=== PATIENT | male | born 1950 | race Caucasian/White ===

== ENCOUNTER 2023-02-06 06:32 | Day surgery (SDC) | payer OTHER ==
[2023-02-06] VITALS (15 sets, daily range): BP systolic 95–153; BP diastolic 59–93
[~2023-02-06] VITALS: Ht 182 cm; Wt 128.3 kg
[~2023-02-06 06:32] MED LIST: AMLO10 PO; CELE100 PO; FURO20 PO; LOSA25 PO; NO ROUTINE MEDS; Percocet 5-3251 EACH PO
--- NOTE | 2023-02-06 07:43 | NUR ---
History, Chart, Medications and Allergies reviewed before start of procedure. Ambulatory in Day Surgery. Pre-Op teaching done. Pt verbalizes understanding. Patient confirms NPO status and agrees with scheduled surgery. Patient reports completing Chlorhexadine shower X2 prior to admission to hospital. Surgical site prepped with 2% Chlorhexidine cloth wipe. Lungs clear T/O to Auscultation. Patient States Post-Procedure ride home has been arranged.
--- NOTE | 2023-02-06 10:39 | NUR ---
PATIENT ARRIVED FROM PACU TODAY AT 1030. POD 0 RIGHT TOTAL KNEE PATIENT IS A&OX4. VS ARE WNL AND IS ON RA. PATIENT HAD A SPINAL DURING THE PROCEDURE AND REPORTS NUMBNESS FROM THE TOP OF THE THIGHS DOWN. PATIENT ALSO REPORTS DUE TO THE SPINAL HE DENIES PAIN AT THIS TIME. PEDAL PULSES ARE STRONG AND WARM TO TOUCH. PATIENT HAS AN AQUACEL ON THE RIGHT KNEE THAT IS C/D/I WITH POLAR PACK IN PLACE. HE IS TOLERATING SMALL AMOUNTS OF PO INTAKE AT THIS TIME. HE IS LAYING IN BED WITH CALL LIGHT IN REACH.
--- NOTE | 2023-02-06 15:53 | NUR ---
SHIFT SUMMARY: POD 0 RIGHT TOTAL KNEE PATIENT IS A&OX4. VS ARE WNL AND IS ON RA. PATIENTS PAIN IS MANAGED SO FAR THIS SHIFT WITH PO TYLENOL, OXY, AND IV TORADOL. HIS RIGHT KNEE HAS AN AQUACEL DRESSING THAT IS C/D/I. HE IS ABLE TO WIGGLE ALL FINGERS AND TOES WHEN ASKED. PATIENT WAS ABLE TO WORK WITH PHYSICAL THERAPY TODAY AND IS NOW SITTING UP IN THE RECLINER WITH LEGS ELEVATED. HE IS TOLERATING PO INTAKE. CALL LIGHT IS WITHIN REACH. THE PLAN IS TO WORK WITH PHYSICAL THERAPY AGAIN IN THE MORNING AND THEN TO DISCHARGE HOME IF APPROPRIATE.
--- NOTE | 2023-02-06 18:49 | NUR ---
1700-ASSUMED CARE OF PT FOLLOWING RECEIVING REPORT FROM PREVIOUS RN; PT A/O X 4, PLEASANT/COOPERATIVE, UP IN CHAIR, DENIES N/V, DENIES NEED FOR ANALGESIA AT THIS TIME
[2023-02-07 00:25] VITALS: BP 133/80
[2023-02-07 04:57] VITALS: BP 101/61
[2023-02-07 05:13] LABS: BASOPHILS PERCENT AUTO 0 % (0-2); EOSINOPHILS PERCENT AUTO 0 % (0-6); Hematocrit 37.7 % (37.0-53.0); Hemoglobin 12.4 g/dL (13.5-17.5); IMMATURE GRAN ABSOLUTE AUTO 0.04 K/mm3 (0.00-0.10); IMMATURE GRAN PERCENT AUTO 1 % (0-1); LYMPHOCYTES ABSOLUTE AUTO 1.74 K/mm3 (0.84-5.20); LYMPHOCYTES PERCENT AUTO 27 % (21-46); MONOCYTES ABSOLUTE AUTO 0.23 K/mm3 (0.16-1.47); MONOCYTES PERCENT AUTO 4 % (4-13); Mean Corpuscular HGB 29.6 pg (26.0-34.0); Mean Corpuscular HGB Conc 32.9 g/dL (31.5-36.5); Mean Corpuscular Volume 90 fL (80-100); NEUTROPHILS ABSOLUTE AUTO 4.54 K/mm3 (1.96-9.15); NEUTROPHILS PERCENT AUTO 69 % (41-73); Platelet Count 77 K/mm3 (150-400); RDW Coefficient Variation 14.3 % (11.7-14.2); Red Blood Cell Count 4.19 M/mm3 (4.30-5.90); White Blood Cell Count 6.55 K/mm3 (4.00-11.30)
[2023-02-07 05:43] LABS: Bun/Creatinine Ratio 25.7 (12.0-20.0); Calcium, Blood 9.5 mg/dL (8.5-10.1); Creatinine, Blood 1.09 mg/dL (0.60-1.20); Magnesium, Blood 2.5 mg/dL (1.6-2.4); Potassium, Blood 4.5 mmol/L (3.5-5.5)
--- NOTE | 2023-02-07 05:51 | NUR ---
SHIFT SUMMARY NOC. PT POD 1 FOR R TOTAL KNEE ARTHROPLASTY PERFORMED BY DR. MCCAIN. PT A/O X4, TOLERATING PO INTAKE AND DENIES N/V. PT'S AQUACEL IS C/D/I. PT ABLE TO AMBULATE TO THE BATHROOM THIS SHIFT AND IS VOIDING. PT WORE HIS CPAP FROM HOME FOR HIS SLEEP APNEA, O2 REMAINED ABOVE 94%. PT MEDICATED FOR PAIN WITH RELIEF OF SYMPTOMS. PT RESTED WITH EYES CLOSED AND CALL LIGHT IN REACH.
[2023-02-07 07:32] VITALS: BP 119/70
[2023-02-07] MEDS ORDERED: ASPI81CH PO (07:58)
[2023-02-07] MEDS ORDERED: ACET500 PO (07:58)
[2023-02-07] MEDS ORDERED: OXAYDO5 M1 PO (07:59)
--- NOTE | 2023-02-07 09:51 | NUR ---
DISCHARGE NOTE: PATIENT WAS EDUCATED ON DISCHARGE INSTRUCTIONS. HE VERBALIZED UNDERSTANDING OF INSTRUCTIONS AND HAD NO FURTHER QUESTIONS AT THIS TIME. IV WAS TAKEN OUT AND WNL. HARD PERSCRIPTIONS WERE GIVEN TO YESTERDAY WHICH ARE FILLED AND WAITING AT HOME. PAIN IS MANAGED WITH PO PAIN MEDS. HIS RIGHT KNEE HAS AN AQUACEL DRESSING THAT IS C/D/I. DENIES NUMBNESS OR TINGLING. HE IS TOLERATING PO INTAKE AND IS VOIDING/PASSING GAS. PATIENT IS DRESSED AND HAS PERSONAL ITEMS IN THE ROOM GATHERED. HE WAS WHEELCHAIRED OUT TO HIS WIFES CAR TO BE TAKEN HOME.
== END 2023-02-07 09:53 | disposition home or self-care (01) ==
LOC: ORSCMMR 06:32 → ORD 07:30 → SURS 10:13 → ORD 11:00 → ORSCMMR 02-07 09:53
PROVIDERS: Orthopaedic Surgery
PROC: 0SRC0JA Replacement of Right Knee Joint with Synthetic Substitute, Uncemented, Open Approach (ICD-10-PCS; principal; 2023-02-06 07:30)
DX: M17.11 Unilateral primary osteoarthritis, right knee (principal); E78.5 Hyperlipidemia, unspecified; I10 Essential (primary) hypertension; G47.33 Obstructive sleep apnea (adult) (pediatric); Z87.891 Personal history of nicotine dependence; Z79.899 Other long term (current) drug therapy; Z68.36 Body mass index [BMI] 36.0-36.9, adult
CPT/HCPCS: 27447; 0055T; 36415; 73560-RT; 80048; 83735; 85025; 94660; 97110; 97116; 97162; A9270; C1713; C1776; J0171; J0690; J0735; J1100; J1885; J2371; J2405; J2704; J2795; J3010; J7120